=== PATIENT | female | born 1985 | race Caucasian/White ===

== ENCOUNTER → 2016-10-01 | Outpatient (CLI) | payer OTHER ==
--- NOTE | 2016-10-01 23:04 | MR ---
EXAMINATION TYPE: MR shoulder LT wo con DATE OF EXAM: 10/01/2016 COMPARISON: NONE HISTORY: 31-year-old female impingement syndrome of the left shoulder, left shoulder pain. TECHNIQUE: Multiplanar, multisequence imaging of the left shoulder is performed without contrast. FINDINGS: The long head biceps tendon appears intact. Subscapularis tendon is intact. AC joint is intact. No significant bony changes to impinge onto the underlying cuff. There is a smoothly curved configuration to the acromion. Very mild thickening of the subacromial/subdeltoid bursa overlying the supraspinatus tendon. There is some intermediate signal within the supraspinatus tendon without a discrete supraspinatus or infraspinatus tendon tear. No atrophy of the rotator cuff musculature. No significant shoulder joint effusion. The glenohumeral joint is intact. No discrete labral tear given nonarthrographic technique and no paralabral cyst. No Hill-Sachs deformity or os acromiale. There is some red marrow compatible with patient's relatively young age. IMPRESSION: 1. Mild supraspinatus tendinosis and some trace thickening of the overlying subacromial/subdeltoid bu rsa. No rotator cuff tear. 2. No significant bony impingement from the AC joint or acromion onto the underlying cuff in this paulo tral position.
== END | disposition home or self-care (01) ==
LOC: RADMRIMAIN 16:15
PROVIDERS: ATTEND Nurse Practitioner Family
DX: M67.814 Other specified disorders of tendon, left shoulder (principal)